=== PATIENT | male | born 2000 | race Caucasian/White ===

== ENCOUNTER 2022-12-30 15:24 | Emergency (ER) | payer SELFPAY ==
[~2022-12-30] VITALS: Ht 170.2 cm; Wt 72.7 kg
[2022-12-30 15:35] VITALS: BP 105/67; TEMP 98.9
[2022-12-30 17:10] VITALS: PULSE 64
== END 2022-12-30 17:15 | disposition home or self-care (01) ==
LOC: COL.ER 15:24
DX: S52.611A Displaced fracture of right ulna styloid process, initial encounter for closed fracture (principal); S62.001A Unspecified fracture of navicular [scaphoid] bone of right wrist, initial encounter for closed fracture; Z28.310 Unvaccinated for COVID-19; W50.0XXA Accidental hit or strike by another person, initial encounter; Y93.63 Activity, rugby

== ENCOUNTER → 2023-01-02 | Outpatient (CLI) | payer OTHER | LOC: COL.RAD 10:40 | DX: S62.001A Unspecified fracture of navicular [scaphoid] bone of right wrist, initial encounter for closed fracture (principal); X58.XXXA Exposure to other specified factors, initial encounter ==